=== PATIENT | female | born 1975 | race Caucasian/White ===

== ENCOUNTER 2024-07-23 17:37 | Emergency (ER) | payer MEDICAID ==
[~2024-07-23] VITALS: Ht 149.9 cm; Wt 82.6 kg
[2024-07-23 17:47] VITALS: BP 110/78; PULSE 69; RESP 22; TEMP 98.6; O2SAT 98
[2024-07-23 18:15] VITALS: O2SAT 98
[2024-07-23] MEDS: NACL 0.9% 1,000 ML IV ONE ×2 (18:15→18:45)
[2024-07-23 18:24] LABS: APPEARANCE,URINE CLEAR (CLEAR); BILIRUBIN,URINE NEGATIVE (NEGATIVE); BLOOD, URINE NEGATIVE (NEGATIVE); COLOR,URINE YELLOW (YELLOW); LEUKOCYTE ESTERASE ,URINE NEGATIVE (NEGATIVE); NITRITE, URINE NEGATIVE (NEGATIVE); PROTEIN,URINE NEGATIVE (NEGATIVE); UGLUCOSE 3+ (NEGATIVE); UROBILINOGEN,URINE 0.2 EU/dL (0.2 - 1)
[2024-07-23 18:25] LABS: BASOPHILS % (AUTO) 0.3 % (0.0-2.0); EOSINOPHILS # (AUTO) 0.1 K/uL (0-0.4); EOSINOPHILS % (AUTO) 0.6 % (0.0-4.0); HEMATOCRIT 41.2 % (36-48); HEMOGLOBIN 13.8 g/dL (12.0-16.0); LYMPHOCYTES # (AUTO) 1.5 K/uL (2.5-16.5); LYMPHOCYTES % (AUTO) 17.4 % (20.5-51.1); MEAN CORPUSCULAR HEMOGLOBIN 27 pg (27-31); MEAN CORPUSCULAR HGB CONC 34 g/dL (33-37); MEAN CORPUSCULAR VOLUME 81.9 fL (80-94); MONOCYTES # (AUTO) 0.4 K/uL (0.8-1.0); NEUTROPHILS # (AUTO) 6.7 K/uL (1.8-7.7); NEUTROPHILS % (AUTO) 76.7 % (42.2-75.2); PLATELET COUNT (AUTO) 287 K/uL (140-450); RED BLOOD CELL COUNT(AUTO) 5.03 MIL/uL (4.20-5.40); RED CELL DISTRIBUTION WIDTH 14.4 % (11.6-13.7); WHITE BLOOD COUNT (AUTO) 8.7 K/uL (4.8-10.8)
[2024-07-23 18:40] LABS: ANION GAP 12.8 (8-16); CALCIUM 8.8 mg/dL (8.5-10.1); CARBON DIOXIDE 27.6 mmol/L (21-32); CREATININE 0.9 mg/dL (0.6-1.3); POTASSIUM 4.4 mmol/L (3.5-5.1)
[2024-07-23 18:41] LABS: FLU A ANTIGEN NEGATIVE (NEGATIVE); FLU B ANTIGEN NEGATIVE (NEGATIVE)
[2024-07-23] MEDS ORDERED: ACET500T99 PO (18:41)
[2024-07-23] MEDS ORDERED: IBUP-1842 PO (18:42)
[2024-07-23] MEDS: KETOROLAC 30 MG/ML VIAL IVP ONE (18:43)
[2024-07-23] MEDS: ACETAMINOPHEN EXTRA STRENGTH 500 MG TAB PO ONE (18:44)
[2024-07-23] MEDS ORDERED: INSULIN REGULAR, HUMAN 100 UNIT/ML VIAL SUBQ ONE (18:45)
[2024-07-23 18:57] LABS: ALANINE AMINOTRANSFERASE 26 U/L (12-78); ALBUMIN 3.3 g/dL (3.4-5.0); ALKALINE PHOSPHATASE 211 U/L (50-136); ASPARTATE AMINOTRANSFERASE 20 U/L (15-37); BILIRUBIN,DIRECT 0.1 mg/dL (0.0-0.3); LIPASE 41 U/L (16-77); TOTAL BILIRUBIN 0.4 mg/dL (0.0-1.0); TOTAL PROTEIN, SERUM 7.3 g/dL (6.4-8.2)
[2024-07-23] MEDS: INSULIN REGULAR, HUMAN 100 UNIT/ML VIAL SUBQ ONE (19:03)
[2024-07-23] MEDS ORDERED: ONDA-188 PO (19:09)
[2024-07-23] MEDS: ONDANSETRON 4 MG/2 ML VIAL IVP ONE (19:25)
[2024-07-23 19:29] VITALS: O2SAT 98
[2024-07-23 19:30] VITALS: BP 144/69
[2024-07-23] MEDS: METOCLOPRAMIDE 10 MG/2 ML INJ VIAL IVP ONE (19:42)
[2024-07-23 20:30] VITALS: PULSE 59; RESP 14; TEMP 98.2; O2SAT 98
== END 2024-07-23 20:30 | disposition home or self-care (01) ==
LOC: MED 17:37
DX: U07.1 COVID-19 (principal); E11.9 Type 2 diabetes mellitus without complications; Z79.1 Long term (current) use of non-steroidal anti-inflammatories (NSAID); Z79.899 Other long term (current) drug therapy
CPT/HCPCS: 36415; 71045; 80048; 80076; 81003; 81025; 82948; 83690; 84484; 85025; 87426; 87804; 93005; 96361; 96372; 96374; 96375; 99285; J1815; J1885; J2405; J2765; J7030; Q0092